=== PATIENT | female | born 1970 | race Caucasian/White ===

== ENCOUNTER 2017-01-23 09:54 | Emergency (ER) | payer BC ==
[~2017-01-23] VITALS: Ht 162.6 cm; Wt 88.5 kg
--- NOTE | 2017-01-23 10:26 | Urgent Treatment Center Report ---
History of Present Issue Date/Time Seen by Provider 01/23/17 1015 Visit Reason Pt arrived:Walked Presenting Problem:PT C/O HEAD CONGESTION AND PRODUCTIVE COUGH X4 DAYS Location if Accident: Onset of symptoms date/time:/ or onset unknown for:MEDICAL HX UNKNOWN Have you (or family members/close friends) recently traveled outside the [place]? N If Yes, where/when: Have you had exposure to infectious disease within the past month? TB? Other? 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 States that she has been having sinus pain and pressure, head congestion, and productive cough States that she thinks it is her sinuses draining down into her chest States that she is having a productive cough at times ALLERGIES Coded Allergies: Penicillins (Mild, 01/23/17) History Medical History General CAD? No Angina: No NH: No Hypertension? No Hyperlipidemia? No CHF? No DVT? No PE? No COPD? No Asthma? No Anemia? No GERD? No Gastric ulcers? No GI Bleed? No Hernia? Yes Thyroid Problems? No Hypothyroidism? No CVA? No Seizures? No Diabetes? No Renal Insuffiency? No UTI? Yes Stones? Yes BPH? No GB Disease: No Nephritic Syndrome? No Asplenia? No Hepatitis? No Sickle Cell Disease? No Arthritis? No Migraines? No Cataracts? No Glaucoma? No MRSA? No HIV? No TB? No Anxiety? No Depression? No Cancer? No More? No Immunization HX DT/Tetanus Unknown Surgical Hx Previous Surgery?N Family History Family HX Diabetes Yes CAD Yes Hypertension Yes Hyperlipidemia Yes Cancer Yes TB Yes Social History Smoking Hx Smoker: Never Smoker Tobacco: No Alcohol Alcohol: No Review of Systems All Other Systems Reviewed and Negative ENT nose discharge, nose congestion, throat pain. Respiratory cough Physical Exam Vital Signs Vital Signs Date Time Temp Pulse Resp B/P Pulse O2 O2 Flow FiO2 Ox Delivery Rate 01/23 1007 97.9 89 18 138/94 96 General Appearance normal appearance, WD/WN, no apparent distress Ear, Nose, Throat nasal congestion, Throat red, irritated, drainage noted in back of throat, tenderness noted maxillary sinuses Respiratory Status Yes: trachea midline, chest symmetrical, non tender chest. No: respiratory distress. Lung Sounds bilateral: normal breath sounds, lungs clear. Cardiovascular normal exam, regular rate/rhythm, no peripheral edema, no gallop Neurologic alert, disability case manager II-XII nml as tested, normal exam, no motor/sensory deficits, oriented x 3 Medical Decision Making LABS/Meds/Orders Pt receiving controlled substance in ED? No Results/Orders Laboratory Tests 01/23/17 1010: Group A Strep Screen NOT DETECTED Orders Procedure Date/time Status [facility] STREP SCREEN 01/23 1023 Complete Departure Departure Time of Disposition 1035 Disposition DC Home or Self Care(routine) Clinical Impression Primary Impression: Upper respiratory infection Qualifiers: URI type: unspecified URI Qualified Code: J06.9 - Acute upper respiratory infection, unspecified Condition STABLE Referrals Chaim BARRY,Fabian Dias (Family) Patient Instructions Cough, DI for Cough -- Adult, DI for Nasal Congestion, Sore Throat Additional Instructions * Monitor Temp. Tylenol and/or Ibuprofen as needed. ER if fever is no less than 101 despite alternating Tylenol and Ibuprofen * Encourage fluids, water, Gatorade, powerade, pedialyte if infant/toddler/or child * Warm salt water gargles for throat irritation *Warm fluids *Sore throat lozenges *Sleep elevated *humidifier or vaporizer *Flonase 2 sprays each nostril daily but may take 2-3 days to notice improvement with it *Bromfed may cause drowsiness. Know how it effect you or your child. Before driving, caring for small children or sending your child to school Follow up IMMEDIATELY for new or worsening of symptoms OR no noticeable improvement over the next 48-72 hours. 911 immediately for any life threatening symptoms such as chest pain or difficulty breathing Discharge Counseling Counseled pt/family regarding diagnosis, test results, medications/RX, home care, follow up needs Prescriptions Current Visit Scripts Azithromycin (Zithromycin (Z-RICHY) 250MG Tab) 250 MG PO DAILY #6 TAB TAKE TWO (2) TABLETS ON DAY 1, THEN ONE (1) TABLET DAY #2 THRU #5 D-METHORPHAN HB/P-EPD HCL/BPM (Bromfed Dm Cough Syrup) 10 ML PO Q4HP PRN cough #120 SYR Fluticasone Propionate (Flonase 50 Mcg Nasal [place]) 2 SPRAY NA DAILY #1 BOT Methylprednisolone (Medrol Dose Richy) 4 MG PO UD #1 RICHY TAKE DIRECTED ON PACKAGING at 1037
[2017-01-23] MEDS ORDERED: ZITHROMAX Z PA250 MG PO (10:37)
[2017-01-23] MEDS ORDERED: FLONASE 50 MCG16 GM (10:37)
[2017-01-23] MEDS ORDERED: MEDROL 4MG. DOSE4 MG PO (10:37)
[2017-01-23] MEDS ORDERED: BROMFED DM COU118 ML PO (10:37)
[2017-01-23 10:44] VITALS: BP 138/94
== END 2017-01-23 10:44 | disposition home or self-care (01) ==
LOC: UTC 09:54
DX: J06.9 Acute upper respiratory infection, unspecified (principal); Z87.442 Personal history of urinary calculi; Z88.0 Allergy status to penicillin

== ENCOUNTER → 2017-03-22 | Outpatient (CLI) | payer BC ==
[~2017-03-22] MED LIST: BROMFED DM COU118 ML PO; FLONASE 50 MCG16 GM; MEDROL 4MG. DOSE4 MG PO; ZITHROMAX Z PA250 MG PO
--- NOTE | 2017-03-28 22:57 | RADIOLOGY REPORT PS360 ---
DIG MAMM-SCREEN ISAAC W/CAD CAD Screening ORDERING PHYSICIAN : Fabian Rucker MD PATIENT AGE: 46 years GENDER: Female COMPARISON: Previous mammograms: January 2013, February 2014, 2014 & March 2016 bilateral mammogram studies. Prior studies From [facility] INDICATION: Routine screening. No hormones. No new complaints.. Family history. Mother breast cancer age 54 TECHNIQUE: Standard CC and MLO images were obtained. R2 CAD reviewed. FINDINGS: . Inhomogeneous fairly dense breast pattern. Moderate density fibroglandular elements at the central breast & extending towards lateral & upper-outer quadrant bilateral . Mammography of decreased sensitivity in breast of this character. However I see no new findings of new findings-. Prior films are quite helpful. No discrete dominant mass nor definitive architectural distortion nor suspicious calcifications in either breast. RIGHT BREAST: Overall no significant change. Scattered focal more focal areas of density seen today were present on previous studies of such as the superior right breast. April 2014 and at the superior right breast were present on previous studies LEFT BREAST: Stable overall dense inhomogeneous patterns with no breast pattern with no discrete new findings. Follow-up in one year adequate self breast examination be encouraged in this patient with dense breasts. The palpable area arises ultrasound be useful compliment mammography in breast of this character IMPRESSION: --------- Bilateral follow-up in 1 adequate.. No significant new areas of concern. Relatively Difficult breast exam due the areas of fairly dense inhomogeneous breast tissue with stable areas of density bilateral However no discrete interval change since prior studies suggest/& encourage self breast examination in this patient.- If any palpable area should arise ultrasound is a useful compliment to mammography in breast of this inhomogeneous rather dense character. BI-RADS CATEGORY: 2_Benign. Stable. RECOMMENDED FOLLOWUP: 12M 12 MONTH FOLLOW-UP (A letter has been sent to the patient regarding results of the study.)
== END ==
LOC: RAD 15:45
DX: Z12.31 Encounter for screening mammogram for malignant neoplasm of breast (principal)
CPT/HCPCS: G0202